=== PATIENT | female | born 1985 | race American Indian/Alaskan Native ===

== ENCOUNTER 2018-02-14 07:08 | Emergency (ER) | payer SELFPAY ==
[2018-02-14 07:16] VITALS: RESP 18; O2SAT 99; BMI 49.8
[2018-02-14] MEDS ORDERED: DiphenhydrAMINE 12.5 mg/5 ml LIQ UD (5 ml) PO STA (07:21)
--- NOTE | 2018-02-14 07:21 | ED PDOC ---
Arrival/HPI - General Chief Complaint: Allergic Reaction Time Seen by Provider: 02/14/18 07:12 Historian: Patient - History of Present Illness Narrative History of Present Illness (Text): 02/14/18 07:21 A 32 year old female, whose past medical history includes hypertension, presents to the emergency department complaining of allergic reaction since yesterday. Patient reports her face started swelling last night and she took a Benadryl at 11 pm before she went to sleep. Patient reports she woke up this morning and noticed her face was still slightly swollen with slight itching. Patient notes the only abnormal food she had eaten yesterday was honey nut cheerios which, the patient states, has not caused such symptoms before. Patient reports she is not a smoker or drinker, she has no epipen at home and she has not taken her medication prescribed for high blood pressure in 2 weeks due to insurance issues. Patient also notes she has no new detergents or new makeup. Patient denies any redness of the skin, tingling in throat, difficulty breathing, fever, chills, shortness of breath, chest pain, diarrhea, nausea, vomiting, urinary symptoms, back pain, neck pain, headache, dizziness, or any other complaints. PMD: Dr. Charles 02/14/18 08:00 Time/Duration: 24 hours (Yesterday) Symptom Onset: Gradual Activities at Onset: Light Context: Home Past Medical History - Provider Review Nursing Documentation Reviewed: Yes - Infectious Disease Hx of Infectious Diseases: None - Cardiac Hx Heart Murmur: Yes Hx Hypertension: Yes - Psychiatric Hx Depression: No Hx Emotional Abuse: No Hx Physical Abuse: No Hx Substance Use: No - Past Surgical History Past Surgical History: No Previous - Anesthesia Hx Anesthesia: No - Suicidal Assessment Feels Threatened In Home Enviroment: No Family/Social History - Physician Review Nursing Documentation Reviewed: Yes Family/Social History: Unknown Family HX Smoking Status: Never Smoked Hx Alcohol Use: No Hx Substance Use: No Hx Substance Use Treatment: No Allergies/Home Meds Allergies/Adverse Reactions: Allergies No Known Allergies Allergy (Verified 06/26/17 11:09) Review of Systems - Physician Review All systems were reviewed & negative as marked: Yes - Review of Systems Constitutional: absent: Fevers, Night Sweats Respiratory: absent: SOB Cardiovascular: absent: Chest Pain Gastrointestinal: absent: Diarrhea, Nausea, Vomiting Genitourinary Female: absent: Urine Output Changes Musculoskeletal: absent: Back Pain, Neck Pain Skin: Other (+facial swelling, slight itchiness) Neurological: absent: Headache, Dizziness Physical Exam Vital Signs Reviewed: Yes Vital Signs Temp Pulse Resp BP Pulse Ox 02/14/18 07:08 98.8 F 72 18 158/92 H 99 Temperature: Afebrile Blood Pressure: Hypertensive Pulse: Regular Respiratory Rate: Normal Appearance: Positive for: Well-Appearing, Non-Toxic, Comfortable Pain Distress: None Mental Status: Positive for: Alert and Oriented X 3 - Systems Exam Head: Present: Atraumatic, Normocephalic Pupils: Present: PERRL Extroacular Muscles: Present: EOMI Conjunctiva: Present: Normal Mouth: Present: Moist Mucous Membranes Neck: Present: Normal Range of Motion Respiratory/Chest: Present: Clear to Auscultation, Good Air Exchange. No: Respiratory Distress, Accessory Muscle Use Cardiovascular: Present: Regular Rate and Rhythm, Normal S1, S2. No: Murmurs Abdomen: No: Tenderness, Distention, Peritoneal Signs Back: Present: Normal Inspection Upper Extremity: Present: Normal Inspection. No: Cyanosis, Edema Lower Extremity: Present: Normal Inspection. No: Edema Neurological: Present: GCS=15, CN II-XII Intact, Speech Normal Skin: Present: Warm, Dry, Normal Color. No: Rashes Psychiatric: Present: Alert, Oriented x 3, Normal Insight, Normal Concentration Medical Decision Making ED Course and Treatment: 02/14/18 07:24 Impression: 32 year old female presenting to the emergency department complaining of an allergic reaction. Well appearing, without signs of airway compromise (no tingling in the back of the mouth). No urticaria noticed. No N/ V. Recent exposure to cheerios likely allergen, instructed pt to stay away from cheerios. Pt cleared by start of allergic symptoms last night (4-6hrs) obs window. Plan: -- Benadryl -- Pepcid -- Reassess and disposition Prior Visits: Notes and results from previous visits were reviewed. Progress Notes: 02/14/18 08:00 reassessed, protecting airway, no urticara or rash noted. Non-hypotensive. tolerated meds well, clear for d/c home w/ epipen. - Medication Orders Current Medication Orders: Discontinued Medications Diphenhydramine HCl (Benadryl) 25 mg PO STAT STA Stop: 02/14/18 07:22 Last Admin: 02/14/18 07:28 Dose: 25 mg Famotidine (Pepcid) 20 mg PO STAT STA Stop: 02/14/18 07:22 Last Admin: 02/14/18 07:28 Dose: 20 mg - Johnibe Statement The provider has reviewed the documentation as recorded by the Praful Beyer All medical record entries made by the Johnibsintia were at my direction and personally dictated by me. I have reviewed the chart and agree that the record accurately reflects my personal performance of the history, physical exam, medical decision making, and the department course for this patient. I have also personally directed, reviewed, and agree with the discharge instructions and disposition. Disposition/Present on Arrival - Present on Arrival Any Indicators Present on Arrival: No History of DVT/PE: No History of Uncontrolled Diabetes: No Urinary Catheter: No History of Decub. Ulcer: No History Surgical Site Infection Following: None - Disposition Have Diagnosis and Disposition been Completed?: Yes Diagnosis: Allergic reaction, Angioedema Disposition: HOME/ ROUTINE Disposition Time: 08:00 Patient Problems: Current Active Problems Problem Status Onset Allergic reaction Acute Angioedema Acute Condition: GOOD Discharge Instructions (ExitCare): Food Allergy, Angioedema, Allergy Skin Testing Additional Instructions: STOP EATING CHEERIOS UNLESS CLEARED BY AN ICE CARVER DOCTOR CHASIDY BUSH, thank you for letting us take care of you today. Your provider was Hardeep Oleary and you were treated for ALLERGIC REACTION. The emergency medical care you received today was directed at your acute symptoms. If you were prescribed any medication, please fill it and take as directed. It may take several days for your symptoms to resolve. Return to the Emergency Department if your symptoms worsen, do not improve, or if you have any other problems. Please contact your doctor or call one of the physicians/clinics you have been referred to that are listed on the Patient Visit Information form that is included in your discharge packet. Bring any paperwork you were given at discharge with you along with any medications you are taking to your follow up visit. Our treatment cannot replace ongoing medical care by a primary care provider outside of the emergency department. Thank you for allowing the [facility] team to be part of your care today. If you had an X-Ray or CT scan: A Radiologist will review the ED reading if any change in treatment is needed we will contact you. If you had a blood, urine, or wound culture: It will take several days for the results, if any change in treatment is needed we will contact you. If you had an STI test: It will take 48 hours for the results. Please call after 1 week if you have not heard back. Prescriptions: Epinephrine HCl [Epipen Auto-Injector] 0.3 mg MR ONCE PRN #1 ml PRN Reason: Anaphylaxis Referrals: Fely Baumann MD [Medical Doctor] - Follow up with primary Bryan Charles MD [Family Provider] - Follow up with primary Forms: [employer] (Urdu)
[2018-02-14 08:03] VITALS: BP 150/89; PULSE 67; TEMP 98.5
== END 2018-02-14 08:07 | disposition home or self-care (01) ==
LOC: ED 07:08
DX: T78.3XXA Angioneurotic edema, initial encounter (principal); I10 Essential (primary) hypertension

== ENCOUNTER 2018-05-30 12:15 | Emergency (ER) | payer OTHER ==
[2018-05-30 12:15] VITALS: BMI 49.8
[2018-05-30 12:34] VITALS: O2SAT 100
--- NOTE | 2018-05-30 12:51 | ED PDOC ---
Arrival/HPI - General Chief Complaint: High Blood Pressure Historian: Patient - History of Present Illness Narrative History of Present Illness (Text): 05/30/18 12:48 32 y/o female, pmh including htn, nkda, c/o headache and htn x 2 days. Pt. stated that she has chronic htn, out of her bp medication, been having headache and check the BP noted to have 160/100, concern so she came to the ER. Pt. has no chest pain or palpitation, no numbness or tingling, no headache now in the ER, no change in vision, no night sweat, no rash, no palpitation, no other medical or psychological complaints. Past Medical History - Provider Review Nursing Documentation Reviewed: Yes - Infectious Disease Hx of Infectious Diseases: None - Cardiac Hx Heart Murmur: Yes Hx Hypertension: Yes - Psychiatric Hx Depression: No Hx Emotional Abuse: No Hx Physical Abuse: No Hx Substance Use: No - Past Surgical History Past Surgical History: No Previous - Anesthesia Hx Anesthesia: No Hx Anesthesia Reactions: No Hx Malignant Hyperthermia: No - Suicidal Assessment Feels Threatened In Home Enviroment: No Family/Social History - Physician Review Nursing Documentation Reviewed: Yes Family/Social History: Unknown Family HX Smoking Status: Never Smoked Hx Alcohol Use: No Hx Substance Use: No Hx Substance Use Treatment: No Allergies/Home Meds Allergies/Adverse Reactions: Allergies No Known Allergies Allergy (Verified 06/26/17 11:09) Review of Systems - Review of Systems Constitutional: absent: Fatigue, Fevers Eyes: absent: Vision Changes ENT: absent: Hearing Changes Respiratory: absent: SOB, Cough Cardiovascular: absent: Chest Pain Gastrointestinal: absent: Abdominal Pain, Diarrhea, Nausea, Vomiting Skin: absent: Rash, Pruritis Neurological: Headache. absent: Dizziness Hemo/Lymphatic: absent: Adenopathy Psychiatric: absent: Anxiety, Depression, Suicidal Ideation Physical Exam Vital Signs Reviewed: Yes Vital Signs Temp Pulse Resp BP Pulse Ox 05/30/18 12:15 98.2 F 99 H 20 148/96 H 100 Temperature: Afebrile Blood Pressure: Hypertensive Pulse: Regular Respiratory Rate: Normal Appearance: Positive for: Well-Appearing, Non-Toxic, Comfortable Pain Distress: None Mental Status: Positive for: Alert and Oriented X 3 - Systems Exam Head: Present: Atraumatic, Normocephalic, Other (no temporal artery tenderness or jaw claudication). No: Tenderness, Contusion, Swelling, Ecchymosis, Abrasion, Laceration Pupils: Present: PERRL Extroacular Muscles: Present: EOMI Conjunctiva: Present: Normal Ears: Present: NORMAL TM, Normal Canal. No: Erythema Mouth: Present: Moist Mucous Membranes Pharnyx: No: ERYTHEMA, EXUDATE, TONSILS ENLARGED Nose (External): Present: Atraumatic. No: Abrasion, Contusion, Laceration Nose (Internal): Present: Normal Inspection, No Active Bleeding. No: Rhinorrhea, Septal Hematoma, Epistaxis Neck: Present: Normal Range of Motion, Trachea Midline. No: MIDLINE TENDERNESS, Paraspinal Tenderness, Lymphadenopathy Respiratory/Chest: Present: Clear to Auscultation, Good Air Exchange. No: Respiratory Distress, Accessory Muscle Use Cardiovascular: Present: Regular Rate and Rhythm, Normal S1, S2. No: Murmurs Abdomen: No: Tenderness, Distention, Peritoneal Signs Back: Present: Normal Inspection Upper Extremity: Present: Normal Inspection. No: Cyanosis, Edema Lower Extremity: Present: Normal Inspection. No: Edema Neurological: Present: GCS=15, CN II-XII Intact, Speech Normal, Motor Func Grossly Intact, Gait Normal, Memory Normal, Other (no drift, no focal neurological deficits. ) Skin: Present: Warm, Dry, Normal Color. No: Rashes Psychiatric: Present: Alert, Oriented x 3, Normal Insight, Normal Concentration Medical Decision Making ED Course and Treatment: 05/30/18 12:51 -Labs -CT head -Observe and reassess 05/30/18 15:06 -Urine hcg is negative. -Labs shows no acute findings, trop is negative. -CT head No acute intracranial abnormalities. No significant findings to account for the clinical presentation. -Pt. is asymptomatic with elevated BP, stated that she is out of her medication for weeks, would give the prescription for her. Pt. didn't took her losartan 50/hctz 12.5 today = Hyzaar today, would give it to her here. -Discharge home with nic, education on low salt diet, weight loss, follow up with your own pmd within 2 days, return to the ER for any new or worsening signs or symptoms. - RAD Interpretation Radiology Orders: 05/30/18 12:46 HEAD W/O CONTRAST [CT] Stat Date of service: 05/30/2018 PROCEDURE: CT HEAD WITHOUT CONTRAST. HISTORY: htn/headache, r/o bleed COMPARISON: None available. TECHNIQUE: Axial computed tomography images were obtained through the head/brain without intravenous contrast. Supplemental Coronal and Sagittal projections created and reviewed. Radiation dose: Total exam DLP = 845.39 mGy-cm. This CT exam was performed using one or more of the following dose reduction techniques: Automated exposure control, adjustment of the mA and/or kV according to patient size, and/or use of iterative reconstruction technique. FINDINGS: HEMORRHAGE: No intracranial hemorrhage. BRAIN: No mass effect or edema. No atrophy or chronic microvascular ischemic changes. VENTRICLES: Unremarkable. No hydrocephalus. CALVARIUM: Unremarkable. PARANASAL SINUSES: Unremarkable as visualized. No significant inflammatory changes. MASTOID AIR CELLS: Unremarkable as visualized. No inflammatory changes. OTHER FINDINGS: Findings consistent with "empty sella syndrome" a normal variant IMPRESSION: No acute intracranial abnormalities. No significant findings to account for the clinical presentation. Dust Collector Attendant: Radiologist - PA / ICT CUSTOMER SUPPORT OFFICER / Resident Statement MD/DO has reviewed & agrees with the documentation as recorded. Disposition/Present on Arrival - Present on Arrival Any Indicators Present on Arrival: No History of DVT/PE: No History of Uncontrolled Diabetes: No Urinary Catheter: No History of Decub. Ulcer: No History Surgical Site Infection Following: None - Disposition Have Diagnosis and Disposition been Completed?: Yes Diagnosis: HTN (hypertension), Medication refill Disposition: HOME/ ROUTINE Disposition Time: 15:07 Patient Plan: Discharge Condition: GOOD Additional Instructions: -Discharge home with hyzaar, education on low salt diet, weight loss, follow up with your own pmd within 2 days, return to the ER for any new or worsening signs or symptoms. Prescriptions: Losartan/Hydrochlorothiazide [Losartan-Hctz 50-12.5 mg Tab] 1 each PO DAILY #30 tablet Referrals: FAMILY PROVIDER,NO [Primary Care Provider] - Follow up with primary [facility] [place] [Outside] - Follow up with primary Forms: [employer] (C[place] Rican), WORK NOTE
--- NOTE | 2018-05-30 13:19 | CT ---
Date of service: 05/30/2018 PROCEDURE: CT HEAD WITHOUT CONTRAST. HISTORY: htn/headache, r/o bleed COMPARISON: None available. TECHNIQUE: Axial computed tomography images were obtained through the head/brain without intravenous contrast. Supplemental Coronal and Sagittal projections created and reviewed. Radiation dose: Total exam DLP = 845.39 mGy-cm. This CT exam was performed using one or more of the following dose reduction techniques: Automated exposure control, adjustment of the mA and/or kV according to patient size, and/or use of iterative reconstruction technique. FINDINGS: HEMORRHAGE: No intracranial hemorrhage. BRAIN: No mass effect or edema. No atrophy or chronic microvascular ischemic changes. VENTRICLES: Unremarkable. No hydrocephalus. CALVARIUM: Unremarkable. PARANASAL SINUSES: Unremarkable as visualized. No significant inflammatory changes. MASTOID AIR CELLS: Unremarkable as visualized. No inflammatory changes. OTHER FINDINGS: Findings consistent with "empty sella syndrome" a normal variant IMPRESSION: No acute intracranial abnormalities. No significant findings to account for the clinical presentation.
[2018-05-30 14:01] LABS: PH,URINE 6.5 (4.7-8.0); URINE BILIRUBIN NEGATIVE (NEGATIVE); URINE BLOOD LARGE (NEGATIVE); URINE GLUCOSE (UA) NEGATIVE (NEGATIVE); URINE LEUKOCYTE ESTERASE NEGATIVE Leu/uL (NEGATIVE); URINE PROTEIN NEGATIVE mg/dL (<30 mg/dL)
[2018-05-30 14:02] LABS: URINE COLOR YELLOW (YELLOW)
[2018-05-30 14:07] LABS: URINE APPEARANCE SL CLOUDY (CLEAR); URINE BACTERIA FEW (NEG); URINE RBC TNTC /hpf (0-2); URINE WBC 0 - 2 /hpf (0-6)
[2018-05-30 14:23] LABS: BASO # 0.03 K/mm3 (0.0-2.0); BASO % 0.5 % (0.0-3.0); EOS # 0.1 (0.0-0.7); EOS % 1.9 % (1.5-5.0); GRAN # 3.08 (1.4-6.5); GRAN % 48.1 % (50.0-68.0); HEMOGLOBIN 12.2 g/dL (12.0-16.0); LYMPH # 2.9 (1.2-3.4); LYMPH % 44.8 % (22.0-35.0); MEAN CELL VOLUME 79.5 fl (80.0-105.0); MEAN CORPUSCULAR HEMOGLOBIN 25.6 pg (25.0-35.0); MEAN CORPUSCULAR HGB CONC 32.2 g/dl (31.0-37.0); MEAN PLATELET VOLUME 10.5 fl (7.0-11.0); MONO # 0.3 (0.1-0.6); MONO % 4.7 % (1.0-6.0); RBC 4.77 10^6/uL (3.5-6.1); WHITE BLOOD COUNT 6.4 10^3/uL (4.5-11.0)
[2018-05-30 14:33] LABS: ALB/GLOB RATIO 1.2 (1.1-1.8); ALBUMIN 4.1 g/dL (3.0-4.8); ALT/SGPT 30 U/L (7-56); AST/SGOT 27 U/L (14-36); BLOOD UREA NITROGEN 10 mg/dL (7-21); CALCIUM 9.3 mg/dL (8.4-10.5); GFR NON-AFRICAN AMERICAN > 60
[2018-05-30 14:38] VITALS: BP 155/95; RESP 17; TEMP 97.9
[2018-05-30 14:44] LABS: TROPONIN I < 0.01 ng/mL
[2018-05-30 15:14] VITALS: PULSE 80
== END 2018-05-30 15:21 | disposition home or self-care (01) ==
LOC: ED 12:15
DX: Z76.0 Encounter for issue of repeat prescription (principal); I10 Essential (primary) hypertension

== ENCOUNTER 2018-09-05 21:47 | Emergency (ER) | payer SELFPAY ==
[2018-09-05 22:36] VITALS: RESP 18; BMI 52.7
[2018-09-05] MEDS ORDERED: Sodium Chloride 0.9% 1,000 ML IV STA (23:03)
[2018-09-06 00:08] VITALS: TEMP 98.7; O2SAT 99
[2018-09-06] MEDS ORDERED: Sodium Chloride 0.9% 1,000 ML IV STA (01:02)
--- NOTE | 2018-09-06 01:03 | ED PDOC ---
Arrival/HPI - General Chief Complaint: Flu-like Symptoms Time Seen by Provider: 09/05/18 22:03 Historian: Patient - History of Present Illness Narrative History of Present Illness (Text): 09/06/18 01:00 32-year-old female presents today with flulike symptoms that started today. Patient states she woke up with a sore throat and some nasal congestion and occasional cough. Patient states around 8 PM she had a fever of 101.3. Patient was given 2 tabs of Tylenol while at work and then came to the emergency room for evaluation. Patient states her son was just recently diagnosed with the flu so she is concerned that she has the flu. She denies chest pain or shortness of breath. She denies dizziness or weakness. No abdominal pain. No nausea or vomiting. No other complaints Past Medical History - Provider Review Nursing Documentation Reviewed: Yes - Travel History Have you recently traveled outside [place] w/in the past 3 mons?: No - Infectious Disease Hx of Infectious Diseases: None - Cardiac Hx Cardiac Disorders: Yes Hx Heart Murmur: Yes Hx Hypertension: Yes - Pulmonary Hx Respiratory Disorders: No - Neurological Hx Neurological Disorder: No - HEENT Hx HEENT Disorder: No - Renal Hx Renal Disorder: No - Endocrine/Metabolic Hx Endocrine Disorders: No - Hematological/Oncological Hx Blood Disorders: No - Integumentary Hx Dermatological Disorder: No - Musculoskeletal/Rheumatological Hx Musculoskeletal Disorders: No - Gastrointestinal Hx Gastrointestinal Disorders: No - Genitourinary/Gynecological Hx Genitourinary Disorders: No - Psychiatric Hx Psychophysiologic Disorder: No Hx Substance Use: No - Past Surgical History Past Surgical History: No Previous - Anesthesia Hx Anesthesia: No Hx Anesthesia Reactions: No Hx Malignant Hyperthermia: No - Suicidal Assessment Feels Threatened In Home Enviroment: No Family/Social History - Physician Review Nursing Documentation Reviewed: Yes Family/Social History: Unknown Family HX Smoking Status: Never Smoked Hx Alcohol Use: No Hx Substance Use: No Hx Substance Use Treatment: No Allergies/Home Meds Allergies/Adverse Reactions: Allergies No Known Allergies Allergy (Verified 09/05/18 22:07) Review of Systems - Review of Systems Constitutional: Fatigue, Fevers ENT: Sore Throat, Sinus Congestion Respiratory: Cough. absent: SOB Cardiovascular: absent: Chest Pain, Palpitations Gastrointestinal: absent: Abdominal Pain, Nausea, Vomiting Musculoskeletal: absent: Arthralgias Skin: absent: Rash Neurological: absent: Headache, Dizziness Psychiatric: absent: Anxiety, Depression Physical Exam Vital Signs Reviewed: Yes Vital Signs Temp Pulse Resp BP Pulse Ox 09/06/18 00:07 98.7 F 103 H 18 141/79 99 09/05/18 22:07 99.5 F 120 H 18 180/83 H 97 Temperature: Afebrile Blood Pressure: Hypertensive Pulse: Tachycardic Respiratory Rate: Normal Appearance: Positive for: Well-Appearing, Non-Toxic, Comfortable Pain Distress: None Mental Status: Positive for: Alert and Oriented X 3 - Systems Exam Head: Present: Atraumatic Conjunctiva: Present: Normal Ears: Present: Normal, NORMAL TM Mouth: Present: Moist Mucous Membranes. No: Drooling, Trismus Pharnyx: Present: Normal. No: ERYTHEMA, EXUDATE, TONSILS ENLARGED Nose (External): Present: Atraumatic Nose (Internal): Present: Normal Inspection Neck: Present: Normal Range of Motion, Trachea Midline Respiratory/Chest: Present: Clear to Auscultation, Good Air Exchange. No: Respiratory Distress, Accessory Muscle Use Cardiovascular: Present: Regular Rate and Rhythm, Normal S1, S2. No: Murmurs Abdomen: No: Tenderness Upper Extremity: Present: Normal ROM Lower Extremity: Present: Normal ROM Neurological: Present: GCS=15, Speech Normal Skin: Present: Warm, Dry, Normal Color. No: Rashes Psychiatric: Present: Alert, Oriented x 3 Medical Decision Making ED Course and Treatment: 09/06/18 01:03 Patient is nontoxic well-appearing. C/o flu-like symptoms. Febrile and tachycardic. + sick contacts. Toradol IV Normal saline IV bolus rapid flu; negative Tamiflu po Patient reassessment: Pt feeling better; still slightly tachycardic. Second liter of normal saline ordered discussed all results with patient. I advised follow up with primary care physician within the next 2 days. I advised increase fluids and return if symptoms worsen persist or if new symptoms develop Patient verbalizes understanding of discharge instructions and need for immediate followup. all aspects of this case were discussed the attending of record. IMPRESSION; Influenza Motrin one tablet every 6 hours as needed for pain/fever reduction Tamiflu: 1 capsule twice daily -5 days Increase fluids Followup with primary care physician the next 2 days Return if symptoms worsen persist or if new symptoms develop: Continued high fevers, dizziness, weakness, chest pain or shortness of breath vomiting/diarrhea, or if any other concerning symptoms develop Reassessment Condition: Re-examined, Improved - Medication Orders Current Medication Orders: Discontinued Medications Acetaminophen (Tylenol 325mg Tab) 975 mg PO STAT STA Stop: 09/05/18 22:25 Last Admin: 09/05/18 22:58 Dose: Not Given Non-Admin Reason: pt took tylenol at 8pm Sodium Chloride (Sodium Chloride 0.9%) 1,000 mls @ 999 mls/hr IV .Q1H1M STA Stop: 09/06/18 00:03 Last Admin: 09/05/18 23:20 Dose: 999 mls/hr eMAR Start Stop Document 09/05/18 23:20 AD (Rec: 09/05/18 23:28 AD [place] [id number]) Intravenous Solution Start Date 09/05/18 Start Time 23:20 Ketorolac Tromethamine (Toradol) 30 mg IVP STAT STA Stop: 09/05/18 23:04 Last Admin: 09/05/18 23:28 Dose: 30 mg MAR Pain Assessment Document 09/05/18 23:28 AD (Rec: 09/05/18 23:29 AD [place] [id number]) Pain Reassessment Is this a pain reassessment? No Location Pain Location Body Site Generalized IVP Administration Document 09/05/18 23:28 AD (Rec: 09/05/18 23:29 AD [place] [id number]) Charges for Administration # of IVP Administrations 1 Oseltamivir Phosphate (Tamiflu Cap) 75 mg PO STAT STA; Protocol Stop: 09/05/18 23:05 Last Admin: 09/05/18 23:28 Dose: 75 mg Disposition/Present on Arrival - Present on Arrival Any Indicators Present on Arrival: No History of DVT/PE: No History of Uncontrolled Diabetes: No Urinary Catheter: No History of Decub. Ulcer: No History Surgical Site Infection Following: None - Disposition Have Diagnosis and Disposition been Completed?: Yes Diagnosis: Influenza Disposition Time: 01:04 Patient Plan: Discharge Condition: GOOD Discharge Instructions (ExitCare): Flu, Adult (DC) Additional Instructions: Motrin one tablet every 6 hours as needed for pain/fever reduction Tamiflu: 1 capsule twice daily -5 days Increase fluids Followup with primary care physician the next 2 days Return if symptoms worsen persist or if new symptoms develop: Continued high fevers, dizziness, weakness, chest pain or shortness of breath vomiting/diarrhea, or if any other concerning symptoms develop Prescriptions: Ibuprofen [Motrin] 600 mg PO Q6H PRN #20 tab PRN Reason: pain/fever reduction Oseltamivir Cap [Tamiflu] 75 mg PO BID #10 cap Referrals: Fely Baumann MD [Medical Doctor] - Follow up with primary [facility] [Outside] - Follow up with primary Forms: [employer] (Yoruba), WORK NOTE
[2018-09-06 01:50] VITALS: PULSE 97
[2018-09-06 01:58] VITALS: BP 147/82
== END 2018-09-06 01:58 | disposition home or self-care (01) ==
LOC: ED 21:47
DX: J11.1 Influenza due to unidentified influenza virus with other respiratory manifestations (principal)
CPT/HCPCS: 81025; 87804; 96374; 99284; J1885; J7030

== ENCOUNTER 2018-10-11 07:42 | Emergency (ER) | payer SELFPAY ==
[2018-10-11 07:43] VITALS: BMI 49.8
[2018-10-11 07:57] VITALS: TEMP 99.7; O2SAT 99
[2018-10-11 08:30] LABS: BASO # 0.04 K/mm3 (0.0-2.0); BASO % 0.4 % (0.0-3.0); EOS # 0.1 (0.0-0.7); EOS % 1.4 % (1.5-5.0); HEMOGLOBIN 12.9 g/dL (12.0-16.0); LYMPH # 4.7 (1.2-3.4); LYMPH % 51.9 % (22.0-35.0); MEAN CELL VOLUME 78.6 fl (80.0-105.0); MEAN CORPUSCULAR HGB CONC 31.9 g/dl (31.0-37.0); MEAN PLATELET VOLUME 10.7 fl (7.0-11.0); MONO # 0.6 (0.1-0.6); MONO % 6.8 % (1.0-6.0); RBC 5.15 10^6/uL (3.5-6.1); RED CELL DISTRIBUTION WIDTH 16.8 % (11.5-14.5); WHITE BLOOD COUNT 9.1 10^3/uL (4.5-11.0)
--- NOTE | 2018-10-11 08:30 | ED PDOC ---
Arrival/HPI - General Chief Complaint: Back Pain Time Seen by Provider: 10/11/18 08:05 Historian: Patient - History of Present Illness Narrative History of Present Illness (Text): 10/11/18 08:05 Madie Torrez is a 32 y/o female, with a past medical history of hypertension, who presents to the emergency department complaining of lower back pain radiating to the right lower abdomen since 2 days. Patient informs her last normal period was last month. Patient denies fevers, chills, night sweats, vision changes, headache, dizziness, shortness of breath, cough, chest pain diarrhea, nausea, vomiting, bloody stool, dysuria, hematuria, urinary frequency changes, neck pain, rash, diaphoresis, or any other complaint. Time/Duration: < week (2 days ) Symptom Onset: Sudden Symptom Course: Unchanged Activities at Onset: Light Context: Home Past Medical History - Provider Review Nursing Documentation Reviewed: Yes - Infectious Disease Hx of Infectious Diseases: None - Reproductive Menopause: No - Cardiac Hx Cardiac Disorders: Yes Hx Heart Murmur: Yes Hx Hypertension: Yes - Pulmonary Hx Respiratory Disorders: No - Neurological Hx Neurological Disorder: No - HEENT Hx HEENT Disorder: No - Renal Hx Renal Disorder: No - Endocrine/Metabolic Hx Endocrine Disorders: No - Hematological/Oncological Hx Blood Disorders: No - Integumentary Hx Dermatological Disorder: No - Musculoskeletal/Rheumatological Hx Musculoskeletal Disorders: No - Gastrointestinal Hx Gastrointestinal Disorders: No - Genitourinary/Gynecological Hx Genitourinary Disorders: No - Psychiatric Hx Psychophysiologic Disorder: No Hx Substance Use: No - Past Surgical History Past Surgical History: No Previous - Anesthesia Hx Anesthesia: No Hx Anesthesia Reactions: No Hx Malignant Hyperthermia: No - Suicidal Assessment Feels Threatened In Home Enviroment: No Family/Social History - Physician Review Nursing Documentation Reviewed: Yes Family/Social History: Unknown Family HX Smoking Status: Never Smoked Hx Alcohol Use: No Hx Substance Use: No Hx Substance Use Treatment: No Allergies/Home Meds Allergies/Adverse Reactions: Allergies No Known Allergies Allergy (Verified 09/05/18 22:07) Review of Systems - Review of Systems Constitutional: absent: Fevers, Night Sweats, Other (chills) Eyes: absent: Vision Changes Respiratory: absent: SOB, Cough Cardiovascular: absent: Chest Pain Gastrointestinal: Abdominal Pain (radiating from lower back to right lower abdomen). absent: Diarrhea, Nausea, Vomiting, Hematochezia Genitourinary Female: absent: Dysuria, Frequency, Hematuria Musculoskeletal: Back Pain (lower back pain) Skin: absent: Rash Neurological: absent: Headache, Dizziness Endocrine: absent: Diaphoresis Physical Exam - Physical Exam Narrative Physical Exam (Text): 10/11/18 08:05 Gen: VS reviewed, alert, well developed, well nourished, nontoxic, mild distress. ENT: normal pharynx. Eye: EOMI, PERRL. Neck: no JVD, supple, no adenopathy. CV: regular rate, regular rhythm, no rubs, no murmur, no gallops, S1, S2, pulses equal and strong. Pulm: no distress, clear to auscultation, no wheeze, no rhonchi, breath sounds equal, no rales. Abd: soft. Mild right pelvic to suprapubic tenderness. no guarding, no rebound, no rigidity, normal bowel sounds. Ext: no edema. Skin: good color, no rash, no cyanosis. Psych: responds appropriately to questions, normal affect. Neuro: oriented x 3, CN2-12 intact grossly, motor intact, sensation intact. Vital Signs Reviewed: Yes Vital Signs Temp Pulse Resp BP Pulse Ox 10/11/18 07:53 99.7 F H 112 H 20 128/85 99 Temperature: Afebrile Blood Pressure: Normal Pulse: Tachycardic Respiratory Rate: Normal Appearance: Positive for: Well-Appearing, Non-Toxic, Comfortable Pain Distress: None Mental Status: Positive for: Alert and Oriented X 3 Medical Decision Making ED Course and Treatment: 10/11/18 09:20 patient was seen for pelvic pain and low back pain, found to have positive , US was done to rule out ectopic. With the bacteria in the urine will rx empiric keflex and get urine cultures. with the yeast in the urine, will rx miconazole. patieint encouraged to follow up with ends breakage clerk and to return for any problems or concerns. - RAD Interpretation Narrative RAD Interpretations (Text): 10/11/18 09:03 Transvaginal US shows: Impression: Evidence of an intrauterine gestational sac which measures 0.8 cm and is out of range for gestational age calculation. 2 mm yolk sac. No evidence of pole at this time. Recommend clinical correlation including quantitative beta HCG and interval follow-up as indicated. Radiology Orders: 10/11/18 08:07 OB TRANSVAGINAL [US] Stat Commercial Light Fixture Assembler: Radiologist - Scribe Statement The provider has reviewed the documentation as recorded by the Scribe Naldo Beaver All medical record entries made by the Scribe were at my direction and personally dictated by me. I have reviewed the chart and agree that the record accurately reflects my personal performance of the history, physical exam, medical decision making, and the department course for this patient. I have also personally directed, reviewed, and agree with the discharge instructions and disposition. Disposition/Present on Arrival - Present on Arrival Any Indicators Present on Arrival: No History of DVT/PE: No History of Uncontrolled Diabetes: No Urinary Catheter: No History of Decub. Ulcer: No History Surgical Site Infection Following: None - Disposition Have Diagnosis and Disposition been Completed?: Yes Diagnosis: -related symptom in first trimester, Yeast vaginitis, UTI (urinary tr act infection) Disposition: HOME/ ROUTINE Disposition Time: 09:23 Patient Plan: Discharge Condition: STABLE Discharge Instructions (ExitCare): Vulvovaginal Yeast Infection, - The First Month Additional Instructions: return for any problems or concerns. follow up with your workers' compensation commissioner as soon as possible. Prescriptions: Cephalexin [Keflex] 500 mg PO BID 5 Days #10 capsule Miconazole 2% Vaginal [Monistat 7 Vaginal Cream] 1 ea VG QPM 7 Days #7 tube Referrals: Malia Castelan MD [Staff Provider] - Follow up with primary Forms: [facility] (Norwegian), WORK NOTE
[2018-10-11 08:37] LABS: ALB/GLOB RATIO 1.3 (1.1-1.8); ALBUMIN 4.4 g/dL (3.0-4.8); ALT/SGPT 24 U/L (7-56); AST/SGOT 33 U/L (14-36); BLOOD UREA NITROGEN 9 mg/dL (7-21); CALCIUM 9.7 mg/dL (8.4-10.5); GFR NON-AFRICAN AMERICAN > 60
[2018-10-11 08:38] LABS: URINE BILIRUBIN NEGATIVE (NEGATIVE); URINE BLOOD NEGATIVE (NEGATIVE); URINE GLUCOSE (UA) NEGATIVE (NEGATIVE); URINE LEUKOCYTE ESTERASE NEGATIVE Leu/uL (NEGATIVE); URINE PROTEIN 100 mg/dL (<30 mg/dL); URINE UROBILINOGEN 0.2 E.U./dL (<1 E.U./dL)
[2018-10-11 08:45] LABS: URINE APPEARANCE CLEAR (CLEAR); URINE COLOR YELLOW (YELLOW)
--- NOTE | 2018-10-11 09:06 | US ---
Date of service: 10/11/2018 Indication: pain, ectopic Comparison: None available Technique: Transvaginal pelvic ultrasound Findings: The uterus measures approximately 10.4 x 6.0 x 7.3 cm. Anteverted. Cervix length measures approximately 3.8 cm. Endometrial thickness approximately 1.8 cm. Evidence of an intrauterine gestational sac which measures 0.8 cm and is out of range for gestational age calculation. 2 mm yolk sac. No evidence of pole at this time. The right ovary measures 5.0 x 3.4 x 3.4 cm and contains 1.1 cm follicle/cyst. The left ovary measures 3.1 x 1.9 x 3.2 cm and contains 0.9 cm follicle. Blood flow was demonstrated to both ovaries. Impression: Evidence of an intrauterine gestational sac which measures 0.8 cm and is out of range for gestational age calculation. 2 mm yolk sac. No evidence of pole at this time. Recommend clinical correlation including quantitative beta HCG and interval follow-up as indicated.
[2018-10-11 09:09] LABS: URINE AMORPHOUS SEDIMENT SMALL /hpf; URINE BACTERIA LARGE /hpf; URINE EPITHELIAL CELLS MANY /hpf (0-5); URINE FINE GRANULAR CAST 0 - 2 /hpf
[2018-10-11 09:37] VITALS: BP 153/82; PULSE 115; RESP 18
== END 2018-10-11 09:38 | disposition home or self-care (01) ==
LOC: ED 07:42
DX: O23.591 Infection of other part of genital tract in pregnancy, first trimester (principal); N76.0 Acute vaginitis; O23.41 Unspecified infection of urinary tract in pregnancy, first trimester; Z3A.00 Weeks of gestation of pregnancy not specified